=== PATIENT | female | born 2000 | race Caucasian/White ===

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

== ENCOUNTER 2020-08-26 22:35 | Emergency (ER) | payer BC, OTHER ==
[~2020-08-26] VITALS: Ht 177.8 cm; Wt 97.7 kg
[2020-08-26 23:23] VITALS: BP 129/61
[2020-08-27] MEDS ORDERED: NAPR-683 PO (01:20)
[2020-08-27] MEDS ORDERED: PRED20TA PO (01:20)
--- NOTE | 2020-08-27 01:21 | PHYS DOC ---
Past Medical History Past Medical History: Other Additional Past Medical Histor: ADHD Past Surgical History: No Surgical History, Tonsillectomy Smoking Status: Current Every Day Smoker Alcohol Use: None Drug Use: None Social History Narrative: MARIJ[place] ABOUT 4 HOURS AGO General Adult EDM: Chief Complaint: SHORTNESS OF BREATH HPI: HPI: Patient is a 20 year old female presents with a chief complaint of right-sided rib pain. Patient states pain is been ongoing for 3 days. Patient pain is reproducible to deep breaths. Pain is not reproducible to palpation. Patient denies any shortness of breath cough or congestion. Review of Systems: Review of Systems: Constitutional: Denies fever or chills. [] Eyes: Denies change in visual acuity. [] HENT: Denies nasal congestion or sore throat. [] Respiratory: Denies cough or positive shortness of breath. [pleuritic chest pain] Cardiovascular: Denies chest pain or edema. [] GI: Denies abdominal pain, nausea, vomiting, bloody stools or diarrhea. [] : Denies dysuria. [] Musculoskeletal: Denies back pain or joint pain. [] Integument: Denies rash. [] Neurologic: Denies headache, focal weakness or sensory changes. [] Endocrine: Denies polyuria or polydipsia. [] Lymphatic: Denies swollen glands. [] Psychiatric: Denies depression or anxiety. [] Heart Score: Risk Factors: Risk Factors: DM, Current or recent (<one month) smoker, HTN, HLP, family history of CAD, obesity. Risk Scores: Score 0 - 3: 2.5% MACE over next 6 weeks - Discharge Home Score 4 - 6: 20.3% MACE over next 6 weeks - Admit for Clinical Observation Score 7 - 10: 72.7% MACE over next 6 weeks - Early Invasive Strategies Allergies: Allergies: Allergies Coded Allergies Type Severity Reaction Last Updated Verified No Known Drug Allergies 08/21/14 No Physical Exam: PE: Constitutional: Well developed, well nourished, no acute distress, non-toxic appearance. [] HENT: Normocephalic, atraumatic, bilateral external ears normal, oropharynx moist, no oral exudates, nose normal. [] Eyes: PERRLA, EOMI, conjunctiva normal, no discharge. [] Neck: Normal range of motion, no tenderness, supple, no stridor. [] Cardiovascular:Heart rate regular rhythm, no murmur [] Lungs & Thorax: Bilateral breath sounds clear to auscultation [] Abdomen: Bowel sounds normal, soft, no tenderness, no masses, no pulsatile masses. [] Skin: Warm, dry, no erythema, no rash. [] Back: No tenderness, no CVA tenderness. [] Extremities: No tenderness, no cyanosis, no clubbing, ROM intact, no edema. [] Neurologic: Alert and oriented X 3, normal motor function, normal sensory function, no focal deficits noted. [] Psychologic: Affect normal, judgement normal, mood normal. [] Current Patient Data: Labs: Laboratory Tests Test 08/26/20 22:57 POC Urine HCG, Qualitative Hcg negative (Negative) Vital Signs: Vital Signs Date Time Temp Pulse Resp B/P (MAP) Pulse Ox O2 Delivery O2 Flow Rate FiO2 08/26/20 23:23 94 16 129/61 (83) 97 Room Air 08/26/20 22:45 98.7 98.7 EKG: EKG: [] Radiology/Procedures: Radiology/Procedures: [] Impression: No acute rib fracture or related sequelae including pneumothorax or effusion. No focal airspace consolidation. Cardiomediastinal silhouette within normal limits. IMPRESSION: No acute right rib fracture or cardiopulmonary abnormality. Course & Med Decision Making: Course & Med Decision Making Pertinent Labs and Imaging studies reviewed. (See chart for details) [] Patient was evaluated for chief complaint. Work-up consisted of laboratory analysis. Results reviewed and discussed with patient. Treatment included Motrin. Patient was discharged home with prescription naproxen and and prednisone. Joanna Disclaimer: Joanna Disclaimer: This electronic medical record was generated, in whole or in part, using a voice recognition dictation system. Departure Departure Impression: Primary Impression: Pleurisy Disposition: 01 HOME SELF CARE/HOMELESS Condition: STABLE Referrals: NO PCP (PCP) Patient Instructions: Pleurisy Scripts Prednisone (PREDNISONE) 20 Mg Tablet 1 TAB PO DAILY, #5 TAB Prov: BOLIVAR VASQUEZ DO 08/27/20 Naproxen (NAPROSYN) 500 Mg Tablet 1 TAB PO BID for pain for 30 Days, #20 TAB 0 Refills Prov: BOLIVAR VASQUEZ DO 08/27/20 BOLIVAR VASQUEZ DO Aug 27, 2020 01:20
--- NOTE | 2020-08-27 01:47 | RAD ---
EXAMINATION: RIBS RIGHT AND PA CHEST CLINICAL HISTORY: Right-sided rib/pleuritic chest pain TECHNIQUE: RIBS RIGHT AND PA CHEST Number of Images/Views: 3 COMPARISON: None FINDINGS: No acute rib fracture or related sequelae including pneumothorax or effusion. No focal airspace consolidation. Cardiomediastinal silhouette within normal limits. IMPRESSION: No acute right rib fracture or cardiopulmonary abnormality. Electronically signed by: German Preciado DO (08/27/2020 1:44 AM) ARSLAN
== END 2020-08-27 01:34 ==
LOC: ER 22:35
DX: R09.1 Pleurisy (principal); F90.9 Attention-deficit hyperactivity disorder, unspecified type; F17.200 Nicotine dependence, unspecified, uncomplicated
CPT/HCPCS: 71101; 81025; 99283

== ENCOUNTER 2020-11-22 01:13 | Emergency (ER) | payer BC ==
[~2020-11-22] VITALS: Ht 175.3 cm; Wt 95.9 kg
[~2020-11-22 01:13] MED LIST: NAPR-683 PO; PRED20TA PO
[2020-11-22 01:36] LABS: BILIRUBIN,URINE NEGATIVE (NEG); CLARITY,URINE CLEAR; COLOR,URINE YELLOW; NITRITE,URINE NEGATIVE (NEG); PROTEIN,URINE NEGATIVE (NEG-TRACE); UROBILINOGEN,URINE 0.2 mg/dL (0.2 mg/dL)
[2020-11-22 01:42] LABS: AMPHETAMINE/METHAMPHETAMINE NEG (NEG); BARBITURATES NEG (NEG); BENZODIAZEPINES NEG (NEG); CANNABINOIDS POS (NEG); COCAINE NEG (NEG); METHADONE NEG (NEG); OPIATES NEG (NEG); PHENCYCLIDINE NEG (NEG)
[2020-11-22] MEDS ORDERED: FAMOTIDINE 20 MG/2 ML VIAL IVP ONE (01:45)
[2020-11-22] MEDS ORDERED: ONDANSETRON PF 4 MG/2 ML VIAL. IVP ONE (01:45)
[2020-11-22] MEDS ORDERED: IV NORMAL SALINE 1000ML BAG 1,000 ML IV ONE (01:45)
[2020-11-22 01:47] LABS: BACTERIA,URINE MODERATE /HPF (0-FEW); RBC,URINE 0 /HPF (0-2); WBC,URINE 20-40 /HPF (0-4)
--- NOTE | 2020-11-22 01:47 | PHYS DOC ---
Past Medical History Past Medical History: Other Additional Past Medical Histor: ADHD Past Surgical History: No Surgical History, Tonsillectomy Smoking Status: Current Every Day Smoker Alcohol Use: None Drug Use: None General Adult EDM: Chief Complaint: ABDOMINAL PAIN HPI: HPI: Patient is a 20 year old female who presents to the ED today with abdominal pain, nausea, vomiting that began 3 hours ago. Patient notes that she ate some chicken strips for dinner and about an hour and half later she started vomiting. She notes that her pain is constant. She denies any other associated symptoms. Patient notes that she regularly gets periods but has not had a period in the last month but is not concerned for . Patient admits to daily marijuana use but denies any alcohol or tobacco use or any other illicit drug use. Patient notes that she has never had symptoms like this in the past. There are no further complaints at this time. Review of Systems: Review of Systems: Constitutional: Denies fever or chills Eyes: Denies redness or eye pain HENT: Denies nasal congestion or sore throat Respiratory: Denies cough or shortness of breath Cardiovascular: Denies chest pain or palpitations GI: Positive for abdominal pain, nausea, vomiting, denies diarrhea : Denies dysuria or hematuria Musculoskeletal: Denies back pain or joint pain Integument: Denies rash or skin lesions Neurologic: Denies headache, focal weakness or sensory changes Complete systems were reviewed and found to be within normal limits, except as documented in this note. Current Medications: Current Medications Medications (Trade) Dose Ordered Sig/Tony Start Time Stop Time Status Last Admin Dose Admin Famotidine (Pepcid Vial) 20 mg 1X ONCE 11/22/20 01:45 11/22/20 01:46 Ondansetron HCl (Zofran) 4 mg 1X ONCE 11/22/20 01:45 11/22/20 01:46 Sodium Chloride 1,000 ml @ 1,000 mls/hr 1X ONCE 11/22/20 01:45 11/22/20 02:44 Allergies: Allergies: Allergies Coded Allergies Type Severity Reaction Last Updated Verified No Known Drug Allergies 08/21/14 No Physical Exam: PE: Constitutional: Well developed, well nourished, moderate distress, patient is actively vomiting in room HENT: Normocephalic, atraumatic Eyes: PERRL, EOMI, conjunctiva normal, no discharge Neck: Normal range of motion, no tenderness, supple Lungs & Thorax: No respiratory distress, equal chest rise and fall Abdomen: Epigastric and left upper quadrant tenderness to palpation, diffuse rigidity, no rebound tenderness Skin: Warm, dry, no erythema, no rash Back: No tenderness, no CVA tenderness Extremities: No tenderness, ROM intact, no edema Neurologic: Alert and oriented X 3, normal motor function, normal sensory function, no focal deficits noted Psychologic: Affect normal, judgment normal EKG: EKG: [] Radiology/Procedures: Radiology/Procedures: PROCEDURE: CT ABD PELV W/ IV CONTRST ONLY Study: CT abdomen/pelvis with intravenous contrast Indication: Upper abdominal pain. Distention. Nausea and vomiting. Comparison: None. Technique: Helical CT imaging performed of the abdomen and pelvis after the int ravenous administration of 75 cc Omnipaque 300 contrast. Sagittal and coronal reformats were obtained. One or more of the following individualized dose reduction techniques were utilized for this examination: 1. Automated exposure control 2. Adjustment of the mA and/or kV according to patient size 3. Use of iterative reconstruction technique. Findings: Mild scattered small bowel wall thickening. No pathologic dilatation of small bowel with transitioning to collapse to suggest obstruction. There is some collapsed small bowel at the right aspect of the abdomen but the terminal ileum exhibits normal distention. Fluid distention of the colon and only a small amount of well-formed stool within the rectum. No significant colonic wall thickening. No localized pericolonic inflammation. Within normal limits stomach. Normally located ligament of Treitz. Unremarkable liver. Gallstone approaching the gallbladder neck which measures up to 1.[address] findings of acute cholecystitis. Within normal limi ts biliary tree. Unremarkable pancreas. Upper limits of normal size of the spleen measured at 13 cm AP. No adrenal gland mass. Symmetric renal enhancement. No hydronephrosis or stone. Unremarkable bladder. Within normal limits uterus and ovaries for patient age to include a left ovarian cyst measuring up to 2.9 cm on image 81 series 2 and a small collapsing cystic focus on the left measuring up to 1.9 cm, image 27 series 4. Nonaneurysmal aorta. Retroaortic renal venous drainage on the left. Patent main portal vein and superior mesenteric vein. No lymphadenopathy. No free fluid or pneumoperitoneum. Within normal limits visualized lungs and mediastinal contents. No acute or aggressive osseous process. 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 Impression: 1. Scattered small bowel wall thickening and fluid distention of small and large bowel collectively favored to represent an enteritis with a resultant diarrheal state. No pneumatosis or perforation. 2. Noncalcified gallstone measuring up to 1.6 cm without ancillary findings of acute cholecystitis. 3. Borderline prominence of the spleen. Electronically signed by: GALINDO PARK MD (11/22/2020 3:22 AM) [facility] Course & Med Decision Making: Course & Med Decision Making Pertinent Labs and Imaging studies reviewed. (See chart for details) [] Dragon Disclaimer: Dragon Disclaimer: This electronic medical record was generated, in whole or in part, using a voice recognition dictation system. Departure Departure Impression: Primary Impression: Nausea vomiting and diarrhea Additional Impressions: Abdominal pain Qualified Codes: R10.84 - Generalized abdominal pain Urinary tract infection Qualified Codes: N30.00 - Acute cystitis without hematuria Disposition: 01 [place] HOME SELF CARE/HOMELESS Condition: STABLE Referrals: NO PCP (PCP) MONICA PERALTA MD Patient Instructions: Diarrhea, [id number], Diet for Diarrhea, Adult, Nausea and Vomiting, [id number], Urinary Tract Infection, Miod-ce-Pbcy Scripts Famotidine (PEPCID) 20 Mg Tablet 20 MG PO BID, #10 TAB Prov: ALVERTO BRISENO DO 11/22/20 Ondansetron (ONDANSETRON ODT) 4 Mg Tab.rapdis 1 TAB PO PRN Q6-8HRS PRN for NAUSEA, #16 TAB Prov: ALVERTO BRISENO DO 11/22/20 Cephalexin (CEPHALEXIN) 500 Mg Capsule 1 CAP PO TID for 7 Days, #21 CAP Prov: ALVERTO BRISENO DO 11/22/20 ALVERTO BRISENO DO Nov 22, 2020 01:47
[2020-11-22 01:57] LABS: U PREG PATIENT NEGATIVE (NEG)
[2020-11-22 02:01] LABS: BASO # 0.1 x10^3/uL (0.0-0.2); BASO % 0 % (0-3); EOS # 0.2 x10^3/uL (0.0-0.7); EOS % 1 % (0-3); HEMATOCRIT 42.2 % (36.0-47.0); HEMOGLOBIN 14.1 g/dL (12.0-15.5); LYMPH # 1.1 x10^3/uL (1.0-4.8); LYMPH % 7 % (24-48); MEAN CORPUSCULAR HEMOGLOBIN 28 pg (25-35); MEAN CORPUSCULAR HGB CONC 33 g/dL (31-37); MEAN CORPUSCULAR VOLUME 85 fL (79-100); MONO # 1.1 x10^3/uL (0.0-1.1); MONO % 7 % (0-9); NEUT # 13.3 x10^3/uL (1.8-7.7); NEUT % 85 % (31-73); PLATELET COUNT 287 x10^3/uL (140-400); RED BLOOD COUNT 4.95 x10^6/uL (3.50-5.40); RED CELL DISTRIBUTION WIDTH 16.1 % (11.5-14.5); WHITE BLOOD COUNT 15.8 x10^3/uL (4.0-11.0)
[2020-11-22 02:09] LABS: CALCIUM 8.7 mg/dL (8.5-10.1); CREATININE 1.1 mg/dL (0.6-1.0); GFR 63.3; POTASSIUM 3.7 mmol/L (3.5-5.1)
[2020-11-22 02:15] LABS: ALBUMIN 3.9 g/dL (3.4-5.0); ALBUMIN/GLOBULIN RATIO 0.9 (1.0-1.7); TOTAL BILIRUBIN 0.4 mg/dL (0.2-1.0); TOTAL PROTEIN 8.4 g/dL (6.4-8.2)
[2020-11-22] MEDS ORDERED: CONTRAST GIVEN. MC PRN (02:30)
[2020-11-22] MEDS ORDERED: IOHEXOL 300 MG/ML 100ML VIAL. IV ONE (02:30)
--- NOTE | 2020-11-22 03:24 | RAD ---
Study: CT abdomen/pelvis with intravenous contrast Indication: Upper abdominal pain. Distention. Nausea and vomiting. Comparison: None. Technique: Helical CT imaging performed of the abdomen and pelvis after the intravenous administratio n of 75 cc Omnipaque 300 contrast. Sagittal and coronal reformats were obtained. One or more of the following individualized dose reduction techniques were utilized for this examinat ion: 1. Automated exposure control 2. Adjustment of the mA and/or kV according to patient size 3. Use of iterative reconstruction technique. Findings: Mild scattered small bowel wall thickening. No pathologic dilatation of small bowel with transitionin g to collapse to suggest obstruction. There is some collapsed small bowel at the right aspect of the abdomen but the terminal ileum exhibits normal distention. Fluid distention of the colon and only a s mall amount of well-formed stool within the rectum. No significant colonic wall thickening. No locali zed pericolonic inflammation. Within normal limits stomach. Normally located ligament of Treitz. Unremarkable liver. Gallstone approaching the gallbladder neck which measures up to 1.6 cm. No associ ated CT findings of acute cholecystitis. Within normal limits biliary tree. Unremarkable pancreas. Up per limits of normal size of the spleen measured at 13 cm AP. No adrenal gland mass. Symmetric renal enhancement. No hydronephrosis or stone. Unremarkable bladder. Within normal limits uterus and ovarie s for patient age to include a left ovarian cyst measuring up to 2.9 cm on image 81 series 2 and a sm all collapsing cystic focus on the left measuring up to 1.9 cm, image 27 series 4. Nonaneurysmal aorta. Retroaortic renal venous drainage on the left. Patent main portal vein and super ior mesenteric vein. No lymphadenopathy. No free fluid or pneumoperitoneum. Within normal limits visu alized lungs and mediastinal contents. No acute or aggressive osseous process. Chronic unilateral par s defect on the right at L5. Impression: 1. Scattered small bowel wall thickening and fluid distention of small and large bowel collectively favored to represent an enteritis with a resultant diarrheal state. No pneumatosis or perforation. 2. Noncalcified gallstone measuring up to 1.6 cm without ancillary findings of acute cholecystitis. 3. Borderline prominence of the spleen. Electronically signed by: GALINDO PARK MD (11/22/2020 3:22 AM) [facility]
[2020-11-22 04:40] VITALS: BP 104/51
[2020-11-22] MEDS ORDERED: cefTRIAXone IV Push 1 GM VIAL. IVP ONE (04:45)
[2020-11-22] MEDS ORDERED: CEPH500C PO (04:49)
[2020-11-22] MEDS ORDERED: ONDA4TAB12 PO (04:49)
[2020-11-22] MEDS ORDERED: FAMO-63 PO (04:49)
[2020-11-22 05:00] LABS: % BANDS 1 % (0-9); % EOS 1 % (0-5); % LYMPHS 11 % (24-48); % MONOS 8 % (0-10); % SEGS 79 % (35-66); PLT ESTIMATE ADEQUATE (ADEQUATE)
== END 2020-11-22 05:04 | disposition home or self-care (01) ==
LOC: ER 01:13
DX: N30.00 Acute cystitis without hematuria (principal); R11.2 Nausea with vomiting, unspecified; R19.7 Diarrhea, unspecified; R10.84 Generalized abdominal pain; F17.200 Nicotine dependence, unspecified, uncomplicated; Z90.89 Acquired absence of other organs
CPT/HCPCS: 36415; 74177; 80053; 80307; 81001; 81025; 83690; 83735; 85007; 85025; 87086; 96361; 96374; 96375; 99285; J0696; J2405; J3490; J7030; Q9967